=== PATIENT | female | born 1980 | race Asian ===

== ENCOUNTER 2016-05-08 03:50 | Inpatient (IN) | payer BC ==
[2016-05-08] MEDS ORDERED: OXYTOCIN 10 UNIT/ML VIAL IM ONE (04:00)
[2016-05-08] MEDS ORDERED: LIDOCAINE 1% 30 ML SDV ONE (04:13)
[2016-05-08] MEDS ORDERED: OXYTOCIN 10 UNIT/ML VIAL ONE (04:13)
[2016-05-08] MEDS ORDERED: HYDROCODONE/APAP 5/325 TAB PO PRN (04:52)
[2016-05-08] MEDS ORDERED: DOCUSATE SODIUM 100 MG CAP PO PRN (04:52)
[2016-05-08] MEDS ORDERED: HYDROCORTISONE 0.5% CREAM TP PRN (04:52)
[2016-05-08] MEDS ORDERED: ACETAMINOPHEN 325 MG TAB PO PRN (04:52)
--- NOTE | 2016-05-08 04:57 | OBPROC ---
- Labor and Delivery Onset of Contractions Date: 05/08/16 Onset of Contractions Time: 01:00 Onset of Contractions Type: Spontaneous Rupture of Membranes Date: 05/08/16 Rupture of Membranes Time: :55 Rupture of Membranes Type: Spontaneous Amniotic Fluid Color: Clear Dilation Complete Time: :56 Delivery Type: Spontaneous Placenta Delivery Date: 05/08/16 Placenta Delivery Time: 04:09 Episiotomy/Laceration: 1st Degree Repair: 3-0, Vicryl EBL: 200 Complications: Nuchal Cord Cord Gases: collected - Medications Labor Augmentation/Induction Meds Used: None - [place] Info Infant A Delivery Date: 05/08/16 Delivery Time: :56 Sex of : Female Score (1 Min): 8 Score (5 Min): 9
[2016-05-08] MEDS ORDERED: LR 1,000 ML IV PRN (04:58)
[2016-05-08] MEDS ORDERED: OXYTOCIN/RINGERS LACTATE 1,000 ML IV PRN (04:58)
[2016-05-08] MEDS ORDERED: TERBUTALINE SULFATE 1 MG/ML VIAL IV PRN (04:58)
[2016-05-08] MEDS: IBUPROFEN 600 MG TAB PO PRN ×3 (05:22→19:27)
--- NOTE | 2016-05-08 05:37 | GHP ---
[f rep st] PREOP HISTORY AND PHYSICAL DATE OF ADMISSION: 05/08/2016 The patient is a 36-year-old G4, P2, 0-1-2, at 40 and 1/7th weeks gestation, came in in active labor and precipitously delivered shortly after arrival. The patient has received care with [facility] since first trimester. The patient was seen in the office today. She was 4 cm di lated. Began having strong contractions around 1 o'clock this morning, arrived at the hospital full y dilated, spontaneously ruptured, then precipitously delivered with Dania Roman R.N. while I was in the house coming to the unit. PAST MEDICAL HISTORY: Unremarkable. MEDICATIONS: vitamins. PAST SURGICAL HISTORY: [place] tooth removal. ALLERGIES: None. SOCIAL HISTORY: . Denies alcohol, tobacco or drug use. FAMILY HISTORY: Noncontributory. [employer] HISTORY: Menarche at age 13. Periods every 28 days, lasting less than 7 days. No history of a bnormal pap smears or STDs. OB HISTORY: She is 4; para 2, 0-1-2. In 11/2009 had a 41 week male, 7 pounds 4 ounces. Ju 2013 had a 39 week 5 day male, 6 pounds 14 ounces. January 2015 had a missed treated m edically with Cytotec. Current has been uncomplicated, except for positive Verifi test fo r monosomy X. Amniocentesis then showed normal 46 XX. PHYSICAL EXAMINATION: VITAL SIGNS: Stable. GENERAL APPEARANCE: Alert and oriented x3. HEART: Rat e regular. LUNGS: Clear to auscultation bilaterally. ABDOMEN: Soft, nontender, gravid. VAGINAL: The patient arrived complete and delivered. ASSESSMENT/PLAN: A 36-year-old G4, P2, 0-1-2, now para 3-0-1-3. Plan: Routine care. /[id number]/MODL
--- NOTE | 2016-05-08 10:30 | OBPROG ---
OBG Progress Note Assessment/Plan: Assessment: 36 y/o PPD 0 s/p precipitous @ 4 am this am. Plan: Routine PPC, Ibuprofen prn and support. We discussed post contraception and we will likely do a Mirena IUD 8 weeks post . 05/08/16 10:30 Subjective: Pt is feeling well this am. She is having cramping helped by Ibuprofen. Min lochia and now ambulating and voiding without difficulty. Baby is doing well, she nursed immediately after but is somewhat sleepy now. Objective: Temp Pulse Resp BP Pulse Ox 37.1 C 93 18 123/65 H 05/08/16 08:25 05/08/16 08:25 05/08/16 08:25 05/08/16 08:25 Uterine Position/Fundal Height: Umbilicus -3 Uterine Tone: Firm - Physical Exam General Appearance: WD/WN, alert, no apparent distress Neck: non-tender, full range of motion, supple Respiratory: chest non-tender, lungs clear, normal breath sounds Cardiac/Chest: regular rate, rhythm Abdomen: normal bowel sounds Extremities: swelling (no), De's sign (neg) ICD10 Worksheet Patient Problems: Problems Problem Status Onset Active labor at term Acute Normal spontaneous vaginal delivery Acute
[2016-05-09] MEDS: IBUPROFEN 600 MG TAB PO PRN ×4 (01:26→20:30)
[2016-05-09 08:21] VITALS: RESP 16
--- NOTE | 2016-05-09 13:34 | SOAPPROG ---
SOAP Progress Note Assessment/Plan: Assessment: s/p , day 1 Plan: routine pp care, will discharge tmrw 05/09/16 13:31 Subjective: Pt doing well. Working on . Tired, baby was up all night. Will see . Bleeding light. Voiding without difficulty. Desires to stay overnight. Objective: Vital Signs Temp Pulse Resp BP Pulse Ox 37.0 C 69 16 114/76 05/09/16 08:20 05/09/16 08:20 05/09/16 08:20 05/09/16 08:20 05/08/16 05/09/16 05/10/16 05:59 05:59 05:59 Output Total 430 Balance -430 Physical Exam - Physical Exam General Appearance: WD/WN, alert, no apparent distress Abdomen: non-tender, soft, other (FF @U-1) Pelvic Exam: vaginal bleeding (normal lochia) Extremities: non-tender, pedal edema (none) Neuro/Psych: alert, normal mood/affect, oriented x 3 ICD10 Worksheet Patient Problems: Problems Problem Status Onset Active labor at term Acute Normal spontaneous vaginal delivery Acute
[2016-05-10] MEDS: IBUPROFEN 600 MG TAB PO PRN ×2 (02:24→08:49)
[2016-05-10 08:23] VITALS: BP 118/68; PULSE 90; TEMP 97.6; O2SAT 94
--- NOTE | 2016-05-10 08:34 | SOAPPROG ---
SOAP Progress Note Assessment/Plan: Assessment: PPD 2 s/p Plan: D/C home, cont to work on BF 05/10/16 08:31 Subjective: Pt doing ok. Tired from last noc. Better night and baby slept some. Bld is light. urinating fine. Objective: Vital Signs Temp Pulse Resp BP Pulse Ox 36.4 C 90 16 118/68 94 05/10/16 08:22 05/10/16 08:22 05/10/16 08:22 05/10/16 08:22 05/10/16 08:22 05/09/16 05/10/16 05/11/16 05:59 05:59 06:59 Output Total 430 0 Balance -430 0 Physical Exam - Physical Exam General Appearance: WD/WN Abdomen: non-tender, soft, other (FF at umb -1) Pelvic Exam: vaginal bleeding (normal lochia) Extremities: non-tender, pedal edema (minimal ) Neuro/Psych: normal mood/affect ICD10 Worksheet Patient Problems: Problems Problem Status Onset Normal spontaneous vaginal delivery Acute
== END 2016-05-10 12:25 | disposition home or self-care (01) | DRG 775 ==
LOC: FLD 03:50
PROVIDERS: ADMIT Advanced Practice Midwife; ATTEND Advanced Practice Midwife
PROC: 0HQ9XZZ Repair Perineum Skin, External Approach (ICD-10-PCS; principal; 2016-05-08)
PROC: 10E0XZZ Delivery of Products of Conception, External Approach (ICD-10-PCS; principal; 2016-05-08)
DX: O70.0 First degree perineal laceration during delivery (principal); Z37.0 Single live birth; Z3A.40 40 weeks gestation of pregnancy; O69.82X0 Labor and delivery complicated by other cord entanglement, without compression, not applicable or unspecified